=== PATIENT | female | born 1965 | race Caucasian/White ===

== ENCOUNTER 2020-10-07 10:27 | Outpatient (REF) | payer OTHER, SELFPAY | END 2020-10-07 10:28 | disposition home or self-care (01) | LOC: HO.WFDLDS 10:27 | PROVIDERS: Visit Provider Internal Medicine | DX: Z20.822 Contact with and (suspected) exposure to COVID-19 (principal) | CPT/HCPCS: 36415; C9803; U0003; U0005 ==

== ENCOUNTER 2020-10-13 08:21 | Outpatient (REF) | payer OTHER, SELFPAY | END 2020-10-13 08:22 | disposition home or self-care (01) | LOC: HO.WFDLDS 08:21 | PROVIDERS: PCP Specialist; Visit Provider Internal Medicine | DX: Z20.822 Contact with and (suspected) exposure to COVID-19 (principal) | CPT/HCPCS: 36415; C9803; U0003; U0005 ==